=== PATIENT | female | born 1950 | race Caucasian/White ===

== ENCOUNTER 2016-11-20 00:07 | Inpatient (IN) | payer OTHER ==
[~2016-11-20] VITALS: Ht 160 cm; Wt 59.6 kg
[2016-11-20 00:54] LABS: BASOPHIL % 0.4 % (0-2); RED CELL DISTRIBUTION WIDTH 13.6 % (11.5-14.5)
[2016-11-20 01:01] LABS: PLATELET COUNT 578 x10^3mcL (130-400)
[2016-11-20 01:03] LABS: CALCIUM 8.1 mg/dL (8.5-10.1); CARBON DIOXIDE 27.9 mmol/L (21-32); CHLORIDE SERUM 103 mmol/L (98-107); CREATININE SERUM 0.7 mg/dL (0.6-1.0); GFR1 > 60 mL/min; GLUCOSE SERUM 105 mg/dL (74-106); SODIUM SERUM 140 mmol/L (136-145)
[2016-11-20 01:08] LABS: ALKALINE PHOSPHATASE 65 U/L (46-116); ALT/SGPT 32 U/L (14-59); AST/SGOT 54 U/L (15-37); BILIRUBIN TOTAL 0.29 mg/dL (0.20-1.00); LIPASE 180 IU/L (73-393)
[2016-11-20 01:12] LABS: ALBUMIN 2.2 g/dL (3.4-5.0); TOTAL PROTEIN, SERUM 5.9 g/dL (6.4-8.2)
[2016-11-20 03:32] VITALS: BP 112/71
[2016-11-20 04:06] LABS: CHOLESTEROL/HDL RATIO 2.1
[2016-11-20 04:11] LABS: T3 TOTAL 1.93 ng/mL
[2016-11-20 04:18] LABS: FREE T4 1.38 ng/dL (0.76-1.46); FREE THYROXINE INDEX 4.1 ug/dL (1.4-4.5); T4(THYROXINE) 13.3 ug/dL (4.7-13.3)
[2016-11-20 05:24] VITALS: BP 107/60
[2016-11-20 07:26] LABS: UA SPECIFIC GRAVITY 1.015 (1.005-1.035); microscopic required? YES; urine erythrocyte NEGATIVE (NEGATIVE)
[2016-11-20 07:32] LABS: AMPHETAMINE QUAL UR NONE DETECTED (NEG <=1000)
[2016-11-20 09:07] LABS: BASOPHIL % 0.1 % (0-2); RED CELL DISTRIBUTION WIDTH 13.6 % (11.5-14.5)
[2016-11-20 09:17] LABS: CALCIUM 8.1 mg/dL (8.5-10.1); CARBON DIOXIDE 29.1 mmol/L (21-32); CHLORIDE SERUM 104 mmol/L (98-107); CREATININE SERUM 0.8 mg/dL (0.6-1.0); GFR1 > 60 mL/min; GLUCOSE SERUM 93 mg/dL (74-106); PHOSPHOROUS 3.4 mg/dL (2.5-4.9); SODIUM SERUM 141 mmol/L (136-145)
[2016-11-20 09:22] LABS: PLATELET COUNT 549 x10^3mcL (130-400)
[2016-11-20 10:20] VITALS: BP 105/56
[2016-11-20 12:52] VITALS: BP 102/50
[2016-11-20 22:07] VITALS: BP 115/69
[2016-11-21] VITALS (9 sets, daily range): BP systolic 109–126; BP diastolic 38–76
[2016-11-21 06:00] LABS: BASOPHIL % 0.1 % (0-2); RED CELL DISTRIBUTION WIDTH 13.9 % (11.5-14.5)
[2016-11-21 06:34] LABS: CARBON DIOXIDE 27.9 mmol/L (21-32); CHLORIDE SERUM 106 mmol/L (98-107); CREATININE SERUM 0.8 mg/dL (0.6-1.0); GFR1 > 60 mL/min; GLUCOSE SERUM 100 mg/dL (74-106); PHOSPHOROUS 4.1 mg/dL (2.5-4.9); PLATELET COUNT 536 x10^3mcL (130-400); POTASSIUM SERUM 3.6 mmol/L (3.5-5.1); SODIUM SERUM 142 mmol/L (136-145)
[2016-11-21 13:23] LABS: CA 125 243.9 U/mL (0.0-38.1)
[2016-11-21 14:43] LABS: SOURCE FLUID PLEURAL
[2016-11-21 17:13] LABS: APPEARANCE FLUID TURBID; COLOR FLUID YELLOW; LYMPHOCYTE FLUID 33 %; MONOCYTE FLUID 7 %; RBC FLUID 2478 /cumm; SITE FLUID RIGHT; SOURCE FLUID PLEURAL; WBC FLUID 1288 /cumm
[2016-11-22 06:16] VITALS: BP 112/61
[2016-11-22 06:22] LABS: BASOPHIL % 0.4 % (0-2)
[2016-11-22 06:37] LABS: ALKALINE PHOSPHATASE 60 U/L (46-116); ALT/SGPT 35 U/L (14-59); AST/SGOT 85 U/L (15-37); BILIRUBIN TOTAL 0.29 mg/dL (0.20-1.00); CALCIUM 7.9 mg/dL (8.5-10.1); CARBON DIOXIDE 27.4 mmol/L (21-32); CHLORIDE SERUM 107 mmol/L (98-107); CREATININE SERUM 0.8 mg/dL (0.6-1.0); GFR1 > 60 mL/min; GLUCOSE SERUM 94 mg/dL (74-106); MAGNESIUM 1.9 mg/dL (1.8-2.4); PHOSPHOROUS 3.6 mg/dL (2.5-4.9); POTASSIUM SERUM 3.1 mmol/L (3.5-5.1); SODIUM SERUM 143 mmol/L (136-145)
[2016-11-22 06:42] LABS: ALBUMIN 1.8 g/dL (3.4-5.0); TOTAL PROTEIN, SERUM 5.4 g/dL (6.4-8.2)
[2016-11-22 07:42] LABS: PLATELET COUNT 575 x10^3mcL (130-400)
[2016-11-22 09:38] VITALS: BP 98/54
[2016-11-22 13:26] LABS: SITE FLUID RIGHT
[2016-11-22 16:26] LABS: APPEARANCE FLUID TURBID; COLOR FLUID YELLOW; LYMPHOCYTE FLUID 56 %; MONOCYTE FLUID 11 %; RBC FLUID 2128 /cumm; SOURCE FLUID PLEURAL; WBC FLUID 1028 /cumm
[2016-11-22 18:19] VITALS: BP 104/54
[2016-11-22 22:13] VITALS: BP 103/48
[2016-11-23 06:10] VITALS: BP 104/61
[2016-11-23 06:54] LABS: BASOPHIL % 0.3 % (0-2); RED CELL DISTRIBUTION WIDTH 14.1 % (11.5-14.5)
[2016-11-23 07:25] LABS: CALCIUM 8.2 mg/dL (8.5-10.1); CARBON DIOXIDE 24.8 mmol/L (21-32); CHLORIDE SERUM 107 mmol/L (98-107); CREATININE SERUM 0.8 mg/dL (0.6-1.0); GFR1 > 60 mL/min; GLUCOSE SERUM 103 mg/dL (74-106); POTASSIUM SERUM 3.4 mmol/L (3.5-5.1); SODIUM SERUM 141 mmol/L (136-145)
[2016-11-23 08:16] LABS: PLATELET COUNT 584 x10^3mcL (130-400)
[2016-11-23 10:00] VITALS: BP 109/44
[2016-11-23 14:43] VITALS: BP 109/44
[2016-11-23 18:43] VITALS: BP 108/54
[2016-11-23 21:38] VITALS: BP 114/60
[2016-11-24 06:21] LABS: BASOPHIL % 0.1 % (0-2)
[2016-11-24 06:27] LABS: CARBON DIOXIDE 24.8 mmol/L (21-32); CHLORIDE SERUM 105 mmol/L (98-107); CREATININE SERUM 0.8 mg/dL (0.6-1.0); GFR1 > 60 mL/min; GLUCOSE SERUM 104 mg/dL (74-106); POTASSIUM SERUM 3.2 mmol/L (3.5-5.1); SODIUM SERUM 132 mmol/L (136-145)
[2016-11-24 06:47] LABS: PLATELET COUNT 576 x10^3mcL (130-400)
[2016-11-24 06:52] VITALS: BP 109/60
[2016-11-24 10:56] VITALS: BP 103/53
[2016-11-24 16:00] VITALS: BP 112/58
[2016-11-24 16:21] VITALS: BP 103/61
[2016-11-24 16:22] LABS: APPEARANCE FLUID HAZY; COLOR FLUID PALE YELLOW; SOURCE FLUID PLEURAL
[2016-11-24 16:54] LABS: WBC FLUID 720 /cumm
[2016-11-24 16:55] LABS: LYMPHOCYTE FLUID 40 %; MONOCYTE FLUID 5 %; RBC FLUID 1213 /cumm
[2016-11-24 18:32] VITALS: BP 109/65
[2016-11-24 21:40] VITALS: BP 102/79
[2016-11-25 05:32] VITALS: BP 105/50
[2016-11-25] MEDS ORDERED: PROTONIX40 MG/Pac1 PO (05:56)
[2016-11-25] MEDS ORDERED: PERCOCET1 TA5 PO (05:57)
[2016-11-25 06:08] LABS: BASOPHIL % 0.2 % (0-2); RED CELL DISTRIBUTION WIDTH 14.2 % (11.5-14.5)
[2016-11-25] MEDS ORDERED: CLINDAMYCIN HC300 MG PO (06:22)
[2016-11-25] MEDS ORDERED: LEVAQUIN750 MG PO (06:22)
[2016-11-25 06:23] LABS: ALKALINE PHOSPHATASE 76 U/L (46-116); ALT/SGPT 21 U/L (14-59); AST/SGOT 34 U/L (15-37); BILIRUBIN TOTAL 0.2 mg/dL (0.20-1.00); CALCIUM 8.1 mg/dL (8.5-10.1); CHLORIDE SERUM 107 mmol/L (98-107); CREATININE SERUM 0.8 mg/dL (0.6-1.0); GFR1 > 60 mL/min; GLUCOSE SERUM 110 mg/dL (74-106); MAGNESIUM 1.9 mg/dL (1.8-2.4); POTASSIUM SERUM 4.7 mmol/L (3.5-5.1); SODIUM SERUM 141 mmol/L (136-145)
[2016-11-25] MEDS ORDERED: LAC PO (06:25)
[2016-11-25 06:33] LABS: ALBUMIN 1.5 g/dL (3.4-5.0); TOTAL PROTEIN, SERUM 5.6 g/dL (6.4-8.2)
[2016-11-25 07:08] LABS: PLATELET COUNT 574 x10^3mcL (130-400)
[2016-11-25] MEDS ORDERED: POTASSIUM CHLO10 MEQ PO (08:50)
[2016-11-25] MEDS ORDERED: LASIX20 MG PO (08:50)
[2016-11-25 09:54] VITALS: BP 103/55
== END 2016-11-25 10:30 | disposition home health service (06) | DRG 374 ==
LOC: ED 00:07 → DU 02:09 → MU 02:09 → DU 02:42 → MU 22:24
PROVIDERS: Emergency Medicine; Internal Medicine Gastroenterology; ADMIT Family Medicine
PROC: 0DB78ZX Excision of Stomach, Pylorus, Via Natural or Artificial Opening Endoscopic, Diagnostic (ICD-10-PCS; principal; 2016-11-20 11:30)
PROC: 0DJD8ZZ Inspection of Lower Intestinal Tract, Via Natural or Artificial Opening Endoscopic (ICD-10-PCS; 2016-11-21)
PROC: 0W993ZZ Drainage of Right Pleural Cavity, Percutaneous Approach (ICD-10-PCS; 2016-11-21)
PROC: 0W993ZZ Drainage of Right Pleural Cavity, Percutaneous Approach (ICD-10-PCS; 2016-11-22)
PROC: 0W993ZZ Drainage of Right Pleural Cavity, Percutaneous Approach (ICD-10-PCS; 2016-11-24)
DX: C78.6 Secondary malignant neoplasm of retroperitoneum and peritoneum (principal); J69.0 Pneumonitis due to inhalation of food and vomit; N17.0 Acute kidney failure with tubular necrosis; E43 Unspecified severe protein-calorie malnutrition; J90 Pleural effusion, not elsewhere classified; I31.3 Pericardial effusion (noninflammatory); R18.8 Other ascites; K29.70 Gastritis, unspecified, without bleeding; D69.59 Other secondary thrombocytopenia; E87.6 Hypokalemia; R73.03 Prediabetes; Z66 Do not resuscitate
CPT/HCPCS: 32555; 43235; 45378; 82962; 83880; 84439; 88344; 90732; C1729; J1170; J1200; J1610; J1885; J1940; J2250; J2270; J2310; J2405; J2543; J2765; J3010; J3480; J3490; J7030; J7613; J8597; Q0092; Q9966; Q9967

== ENCOUNTER 2016-12-01 11:12 | Emergency (ER) | payer OTHER ==
[~2016-12-01] VITALS: Ht 160 cm; Wt 62.6 kg
[~2016-12-01 11:12] MED LIST: CLINDAMYCIN HC300 MG PO; LAC PO; LASIX20 MG PO; LEVAQUIN750 MG PO; PERCOCET1 TA5 PO; POTASSIUM CHLO10 MEQ PO; PROTONIX40 MG/Pac1 PO
[2016-12-01 11:49] LABS: RED CELL DISTRIBUTION WIDTH 14.4 % (11.5-14.5)
[2016-12-01 11:52] LABS: BASOPHIL % 0 % (0-2)
[2016-12-01 11:54] LABS: PLATELET COUNT 583 x10^3mcL (130-400)
[2016-12-01 12:13] LABS: CALCIUM 8.5 mg/dL (8.5-10.1); CARBON DIOXIDE 26.6 mmol/L (21-32); POTASSIUM SERUM 4.4 mmol/L (3.5-5.1)
[2016-12-01 12:18] LABS: ALBUMIN 1.7 g/dL (3.4-5.0); BILIRUBIN TOTAL 0.2 mg/dL (0.20-1.00); TOTAL PROTEIN, SERUM 6.4 g/dL (6.4-8.2)
[2016-12-01 12:36] LABS: AMYLASE 100 U/L (25-115); CHOLESTEROL 146 mg/dL (<200); LIPASE 551 IU/L (73-393)
[2016-12-01 12:38] LABS: HDL CHOLESTEROL 61 mg/dL (40-60)
[2016-12-01 14:46] VITALS: BP 113/80
--- NOTE | 2016-12-01 17:23 | NUR ---
SOCIAL SERVICE NOTE- LATE ENTRY- I MET WITH THIS PT AND HER DAUGHTER AT THEIR REQUEST. PT WAS JUST DISCHARGED LAST WEEK ON HOME HEALTH WITH FOLLOW-UP PLAN FOR ONCOLOGY TO MANAGE HER GASTRIC CANCER. HOWEVER, PT HAS DECIDED TO FOREGO THE CHEMOTX IN FAVOR OF COMFORT MEASURES. THE DAUGHTER IS SUPPORTIVE OF THIS PLAN. I EEUCATED THEM ON HOSPICE CARE AND OFFERED A CHOICE OF AGENCIES. THEY INITIALLY CHOSE [facility] WHO EVALUATED AND ACCEPTED THE PT. THEY THEN CONTACTED ME AND ASKED IF THEY COULD CHANGE TO ALL [facility]. I CONTACTED ALL [facility] AND SENT CLINICAL. THEY WILL FOLLOW THE PT LATER TODAY OR TOMORROW. THE FAMILY CONTACTED [facility] TO CANCEL THAT PLAN. PT DISCHARGED HOME WITH FAMILY. NO FURTHER NEEDS ANTICIPATED.
== END 2016-12-01 14:59 | disposition home or self-care (01) ==
LOC: ED 11:12
PROVIDERS: Emergency Medicine
DX: R07.89 Other chest pain (principal); J90 Pleural effusion, not elsewhere classified; R18.8 Other ascites; E88.09 Other disorders of plasma-protein metabolism, not elsewhere classified; B37.0 Candidal stomatitis; C16.9 Malignant neoplasm of stomach, unspecified
CPT/HCPCS: 83880; 85378; J2270; Q0092; Q9967